=== PATIENT | female | born 1975 | race African-American/Black ===

== ENCOUNTER 2017-03-17 15:17 | Emergency (ER) | payer SELFPAY ==
[~2017-03-17] VITALS: Ht 172.7 cm; Wt 66.3 kg
[~2017-03-17 15:17] MED LIST: BACT800T5 PO; IBUP600 PO
[2017-03-17 15:18] VITALS: BP 146/100; PULSE 82; RESP 16; TEMP 98.3; O2SAT 98
--- NOTE | 2017-03-17 15:50 | PD ---
HPI Chief Complaint: Skin Problem Time Seen by Provider: 15:22 Travel History International Travel<30 days: No Contact w/Intl Traveler<30days: No Traveled to known affect area: No History of Present Illness HPI 41-year-old female presents emergency department for evaluation of left thumb pain and swelling. Symptom onset 2 days ago. Patient reports she was possibly bitten by a mosquito which caused pain within the left thumb fingertip and has increasingly become more swollen and painful over the last 2 days. She denies injury or trauma or puncture wound to the area. She reports the pain is constant, described as throbbing and worse with palpation, relieved with rest severity 4 out of 10. She denies fevers or chills. She reports normal sensation and movement within the thumb. PFSH Past Medical History Asthma: Yes Heart Rhythm Problems: No Cardiac Catheterization: No Congestive Heart Failure: No Diabetes: No Diminished Hearing: No Hypertension: No Respiratory: Yes (ASTHMA) Immunizations Current: No Myocardial Infarction: No ?: Not : 0 Past Surgical History Coronary Artery Bypass Graft: No Social History Alcohol Use: No Tobacco Use: No Substance Use: No Allergies-Medications (Allergen,Severity, Reaction): Coded Allergies: Benadryl (Verified Allergy, Severe, SWELLING EYES, 03/17/17) Diphenhydramine (Verified Adverse Reaction, Severe, EYES SWELL CLOSED, RASH, 03/17/17) Reported Meds & Prescriptions Reported Meds & Active Scripts Active Motrin 600 Mg Tab (Ibuprofen) 600 Mg Tab 600 Mg PO Q6H PRN Bactrim DS (Sulfamethoxazole-Trimethoprim DS) 1 Tab Tab 1 Tab PO BID Review of Systems Except as stated in HPI: all other systems reviewed are Neg General / Constitutional: No: Fever Eyes: No: Visual changes HENT: No: Headaches Cardiovascular: No: Chest Pain or Discomfort Respiratory: No: Shortness of Breath Gastrointestinal: No: Abdominal Pain Genitourinary: No: Dysuria Musculoskeletal: Positive: Other (left thumb pain) Physical Exam Narrative GENERAL: Well-nourished, well-developed patient. SKIN: Focused skin assessment warm/dry. Mild swelling of left distal thumb and the location of the fingertip. No fluctuance or induration. No evidence of puncture wound. Mild erythema. No lymphangitis. HEAD: Normocephalic. EYES: No scleral icterus. No injection or drainage. NECK: Supple, trachea midline. No JVD or lymphadenopathy. CARDIOVASCULAR: Regular rate and rhythm without murmurs, gallops, or rubs. RESPIRATORY: Breath sounds equal bilaterally. No accessory muscle use. GASTROINTESTINAL: Abdomen soft, non-tender, nondistended. MUSCULOSKELETAL: No cyanosis, or edema. Left hand: Mild swelling of left distal thumb and the location of the fingertip. No fluctuance or induration. No evidence of puncture wound. Mild erythema. No lymphangitis. Full painless range of motion of the digit. Brisk cap refill. . Data Data Last Documented VS Vital Signs Date Time Temp Pulse Resp B/P Pulse Ox O2 Delivery O2 Flow Rate FiO2 03/17/17 15:18 98.3 82 16 146/100 98 MDM Medical Decision Making Medical Screen Exam Complete: Yes Emergency Medical Condition: Yes Differential Diagnosis Early abscess, clinically ruled out infectious tenosynovitis, clinically ruled out cellulitis Narrative Course 41-year-old female present to emergency department for evaluation of left thumb pain and swelling in 2 days. Patient reports she may have been bit by an insect. This was not seen and just to the recovery of the patient's. She denies fever or chills. On exam she does have mild swelling to the left thumb and the location of the fingertip. She does not have clinical evidence of infectious tenosynovitis or cellulitis of the hand. Needle aspirate of the left thumb did not provide any purulent drainage. I suspect this is an early abscess/early felon. Patient prescribed on antibiotics instructed to return in 1-2 days. Patient agrees to plan Diagnosis Primary Impression: Abscess Referrals: [facility] Additional Instructions: Take the antibiotic as prescribed. Continue to soak the finger as instructed. The area may require incision and drainage in the next few days. Return to the emergency department for reevaluation. Scripts Sulfamethoxazole-Trimethoprim (Bactrim DS)800-160 Mg Tab1 Tab PO BID #20 TAB Prov:Nora Sellers 03/17/17 Disposition: 01 DISCHARGE HOME Condition: Stable Nora Sellers Mar 17, 2017 15:50
[2017-03-17] MEDS ORDERED: BACT800T5 PO (15:51)
== END 2017-03-17 16:00 | disposition home or self-care (01) ==
LOC: PHEFT 15:17
DX: L02.512 Cutaneous abscess of left hand (principal)
CPT/HCPCS: 10160

== ENCOUNTER 2017-09-05 13:55 | Emergency (ER) | payer SELFPAY ==
[~2017-09-05 13:55] MED LIST changes: -IBUP600 PO
[2017-09-05 13:57] VITALS: BP 142/86; PULSE 70; RESP 16; TEMP 99; O2SAT 99
[2017-09-05] MEDS ORDERED: BACT800T5 PO (14:47)
--- NOTE | 2017-09-05 14:48 | PD ---
HPI Chief Complaint: Skin Problem Time Seen by Provider: 14:25 Travel History International Travel<30 days: No Contact w/Intl Traveler<30days: No Traveled to known affect area: No History of Present Illness HPI This is a 42-year-old female here with painful lump to her left arm. She reports the lump has been present for close to a year. She bumped the area on a wall while at work which caused area to drain whitish fluid and became increasingly more painful and swollen. She denies fever or chills. No alleviating factors. She has no other medical complaints. [facility] Past Medical History Asthma: Yes Heart Rhythm Problems: No Cardiac Catheterization: No Cardiovascular Problems: Yes (HTN) Congestive Heart Failure: No Diabetes: No Diminished Hearing: No Hypertension: No Respiratory: Yes (ASTHMA) Immunizations Current: No Myocardial Infarction: No ?: Not : 0 Past Surgical History Coronary Artery Bypass Graft: No Social History Alcohol Use: No Tobacco Use: Yes (09/21 PPD) Substance Use: No Allergies-Medications (Allergen,Severity, Reaction): Coded Allergies: diphenhydramine (Unverified Adverse Reaction, Severe, EYES SWELL CLOSED, RASH, 05/02/17) Reported Meds & Prescriptions Reported Meds & Active Scripts Active No Active Prescriptions or Reported Medications Review of Systems Except as stated in HPI: all other systems reviewed are Neg General / Constitutional: No: Fever Physical Exam Narrative GENERAL: Alert female in no distress. SKIN: Warm and dry. 1 cm tender indurated lump to the left deltoid region. The area has a central opening. No drainage. No fluctuance. No surrounding cellulitis. HEAD: Normocephalic. EYES: No scleral icterus. No injection or drainage. NECK: Supple, trachea midline. No JVD or lymphadenopathy. CARDIOVASCULAR: Regular rate and rhythm without murmurs, gallops, or rubs. RESPIRATORY: Breath sounds equal bilaterally. No accessory muscle use. MUSCULOSKELETAL: No cyanosis, or edema. Left Upper extremity: 1 cm tender indurated lump to the left deltoid region. The area has a central opening. No drainage. No fluctuance. No surrounding cellulitis. Data Data Last Documented VS Vital Signs Date Time Temp Pulse Resp B/P (MAP) Pulse Ox O2 Delivery O2 Flow Rate FiO2 09/05/17 13:57 99.0 70 16 142/86 (104) 99 Room Air MDM Medical Decision Making Medical Screen Exam Complete: Yes Emergency Medical Condition: Yes Differential Diagnosis Inflamed sebaceous cysts, abscess, cellulitis Narrative Course 42-year-old female here with what appears to be an inflamed sebaceous cyst. The area apparently began to drain after she contused it on a wall at work. She has tenderness when area is palpated. There is no fluctuance. Patient we put on Bactrim and instructed to follow-up with dermatology for removal. Diagnosis Primary Impression: Inflamed sebaceous cyst Referrals: [employer] [employer] Additional Instructions: Apply warm compresses to the area. Take antibiotics as prescribed. 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 Scripts Sulfamethoxazole-Trimethoprim (Bactrim DS) 800-160 Mg Tab 1 TAB PO BID for Infection, #20 TAB 0 Refills Prov: Nora Sellers 09/05/17 Disposition: 01 DISCHARGE HOME Condition: Stable Nora Sellers Sep 05, 2017 14:48
== END 2017-09-05 15:03 | disposition home or self-care (01) ==
LOC: NEPK 13:55
DX: L72.3 Sebaceous cyst (principal); F17.200 Nicotine dependence, unspecified, uncomplicated
CPT/HCPCS: 99283

== ENCOUNTER 2017-10-21 12:57 | Emergency (ER) | payer SELFPAY ==
[~2017-10-21] VITALS: Ht 172.7 cm; Wt 68.1 kg
[2017-10-21 13:00] VITALS: BP 149/88; PULSE 79; RESP 16; TEMP 98.4; O2SAT 98
[2017-10-21] MEDS ORDERED: PRED20 PO (13:10)
[2017-10-21] MEDS ORDERED: VENTAER INH (13:10)
[2017-10-21] MEDS ORDERED: ZITHTAB PO (13:10)
--- NOTE | 2017-10-21 13:10 | PD ---
HPI Chief Complaint: Cold / Flu Symptoms Time Seen by Provider: 13:03 Travel History International Travel<30 days: No Contact w/Intl Traveler<30days: No Traveled to known affect area: No History of Present Illness HPI The patient is a 42-year-old after [place] female who presents emergency department for cough and cold symptoms of 5 days' duration. The patient is productive cough producing yellow to green sputum over the last 5 days. She also complains of chest congestion associated with her cough and a frontal headache secondary to coughing. She notes subjective fevers without chills or sweats. She does have a history of tobacco use. She denies any nausea, vomiting, diarrhea, or abdominal pain. She denies any significant myalgias or arthralgias. Symptoms are moderate without any alleviating or exacerbating factors. She does have a history of bronchitis. PFSH Past Medical History Asthma: Yes Heart Rhythm Problems: No Cardiac Catheterization: No Cardiovascular Problems: Yes (htn on meds) Congestive Heart Failure: No Diabetes: No Diminished Hearing: No Heparin Induced Thrombocytopen: No Hypertension: No Immunizations Current: No Myocardial Infarction: No ?: Not LMP: 10/09/17 : 0 Past Surgical History Coronary Artery Bypass Graft: No Family History Family Myocardial Infarction: No Social History Alcohol Use: No Tobacco Use: Yes (09/21 PPD) Substance Use: No Allergies-Medications (Allergen,Severity, Reaction): Coded Allergies: diphenhydramine (Unverified Adverse Reaction, Severe, EYES SWELL CLOSED, RASH, 10/21/17) Reported Meds & Prescriptions Reported Meds & Active Scripts Active Bactrim DS (Sulfamethoxazole-Trimethoprim) 800-160 Mg Tab 1 Tab PO BID Review of Systems General / Constitutional: Positive: Fever (subjective) HENT: Positive: Headaches, Congestion Respiratory: Positive: Cough, No: Shortness of Breath Gastrointestinal: No: Nausea, Vomiting, Diarrhea, Abdominal Pain Genitourinary: No: Dysuria Musculoskeletal: No: Myalgias Physical Exam Narrative GENERAL: Awake, alert, pleasant 42-year-old female who appears her stated age and is in no acute respiratory distress. SKIN: Focused skin assessment warm/dry. HEAD: Atraumatic. Normocephalic. EYES: Pupils equal and round. No scleral icterus. No injection or drainage. ENT: No nasal bleeding or discharge. Oropharynx reveals cobblestoning but no exudate. Breath smells of cigarettes. No tenderness of the maxillary sinuses. Minimal tenderness of the frontal sinuses. NECK: Trachea midline. No JVD. CARDIOVASCULAR: Regular rate and rhythm. No murmur appreciated. RESPIRATORY: No accessory muscle use. Few scattered rhonchi. MUSCULOSKELETAL: No obvious deformities. No clubbing. No cyanosis. No edema. NEUROLOGICAL: Awake and alert. No obvious cranial nerve deficits. Motor grossly within normal limits. Normal speech. PSYCHIATRIC: Appropriate mood and affect; insight and judgment normal. Data Data Last Documented VS Vital Signs Date Time Temp Pulse Resp B/P (MAP) Pulse Ox O2 Delivery O2 Flow Rate FiO2 10/21/17 13:00 98.4 79 16 149/88 (108) 98 MDM Medical Decision Making Medical Screen Exam Complete: Yes Emergency Medical Condition: Yes Medical Record Reviewed: Yes Differential Diagnosis Differential diagnosis includes bronchitis, sinusitis, URI, viral syndrome, pharyngitis, pneumonia. Narrative Course The patient's history is consistent with bronchitis, she does have a history of tobacco use. She is advised to stop smoking. Prednisone, albuterol inhaler, Zithromax as directed. Work excuse for today. Follow-up with a primary physician. Return if symptoms worsen or progress. Diagnosis Primary Impression: Bronchitis Patient Instructions: General Instructions Additional Instructions: Medications as directed. Stop smoking. Work excuse for today and tomorrow. Return if symptoms worsen or progress. Follow-up with a primary physician. Med/Other Pt SpecificInfo: Prescription(s) given Scripts Azithromycin (Zithromax Z-Jett) 250 Mg Dspk 250 MG PO DIRECTED for Infection, #1 DSPK 0 Refills 500 MG (2 tabs) day 1, then 1 tab days 2-5. Prov: Ryan Rodriguez MD 10/21/17 Albuterol 18 GM Inh (Ventolin Hfa 18 GM Inh) 90 Mcg/Act Aer 2 PUFF INH Q4H Y for SHORTNESS OF BREATH, #1 INHALER 0 Refills Prov: Ryan Rodriguez MD 10/21/17 Prednisone (Prednisone) 20 Mg Tab 40 MG PO DIRECTED for 5 Days, TAB 0 Refills Prov: Ryan Rodriguez MD 10/21/17 Disposition: 01 DISCHARGE HOME Condition: Stable Ryan Rodriguez MD Oct 21, 2017 13:10
== END 2017-10-21 14:19 | disposition home or self-care (01) ==
LOC: PHEFT 12:57
DX: J40 Bronchitis, not specified as acute or chronic (principal); R51 Headache; J45.909 Unspecified asthma, uncomplicated; I10 Essential (primary) hypertension; F17.200 Nicotine dependence, unspecified, uncomplicated
CPT/HCPCS: 99283

== ENCOUNTER 2017-12-23 08:39 | Emergency (ER) | payer SELFPAY ==
[~2017-12-23] VITALS: Ht 172.7 cm; Wt 67.0 kg
[~2017-12-23 08:39] MED LIST changes: +PRED20 PO; +VENTAER INH; +ZITHTAB PO
[2017-12-23 08:41] VITALS: BP 130/90; PULSE 91; RESP 16; TEMP 98.7; O2SAT 98
[2017-12-23] MEDS ORDERED: HYDR-3583 PO (08:52)
[2017-12-23] MEDS ORDERED: LISI-515 PO (08:52)
[2017-12-23 09:04] LABS: BILIRUBIN, URINE NEG (NEG); BLOOD, URINE SMALL (NEG); GLUCOSE,URINE NEG (NEG); KETONE, URINE 15 mg/dL (NEG); NITRITE,URINE NEG (NEG); PH, URINE 5.5 (5.0-8.5); URINE COLOR YELLOW (YELLW/STRAW); URINE LEUKOCYTE ESTERASE NEG (NEG)
[2017-12-23] MEDS ORDERED: SODIUM CHLOR 0.9% 1000 ML INJ 1,000 ML IV SCH (09:08)
[2017-12-23 09:14] VITALS: O2SAT 97
--- NOTE | 2017-12-23 09:14 | PD ---
HPI Chief Complaint: GI Complaint Time Seen by Provider: 09:08 Travel History International Travel<30 days: No Contact w/Intl Traveler<30days: No Traveled to known affect area: No History of Present Illness HPI Patient presents with complaints of lower abdominal pain 3 days. Reports occasional nausea and vomiting. Denies any urinary or bowel symptoms. Last bowel movement yesterday, normal. Pain is 9 out of 10 constant nature and aggravated with ambulation. No history of abdominal surgeries. Denies . Last menses mid November, regular normal. No history of ovarian cyst. Denies any blood per emesis. PFSH Past Medical History Asthma: Yes Heart Rhythm Problems: No Cardiac Catheterization: No Cardiovascular Problems: Yes (htn on meds) Congestive Heart Failure: No Diabetes: No Diminished Hearing: No Heparin Induced Thrombocytopen: No Hypertension: Yes Medical other: Yes (CHRONIC BACK PAIN) Immunizations Current: No Myocardial Infarction: No Influenza Vaccination: No ?: Not LMP: 12/01/17 : 0 Past Surgical History Coronary Artery Bypass Graft: No Social History Alcohol Use: No Tobacco Use: Yes (09/21 PPD) Substance Use: No Allergies-Medications (Allergen,Severity, Reaction): Coded Allergies: diphenhydramine (Unverified Adverse Reaction, Severe, EYES SWELL CLOSED, RASH, 12/23/17) Reported Meds & Prescriptions Reported Meds & Active Scripts Active Hydrocodone-Acetaminophen 5-325 mg Tab 1 Tab PO Q6H PRN Diclofenac Sodium DR (Diclofenac Sodium) 75 Mg Tabdr 75 Mg PO BID Reported Hydrocodone-Acetaminophen 10-325 mg Tab 1 Tab PO Q6H PRN Lisinopril 20 Mg Tab 20 Mg PO DAILY Review of Systems General / Constitutional: No: Fever Eyes: No: Visual changes HENT: No: Headaches Cardiovascular: No: Chest Pain or Discomfort Respiratory: No: Shortness of Breath Gastrointestinal: Positive: Nausea, Vomiting, Abdominal Pain Genitourinary: No: Dysuria Musculoskeletal: No: Pain Skin: No Rash Neurologic: No: Weakness Psychiatric: No: Depression Endocrine: No: Polydipsia Hematologic/Lymphatic: No: Easy Bruising Physical Exam Narrative GENERAL: Well-nourished, well-developed patient. SKIN: Focused skin assessment warm/dry. HEAD: Normocephalic. EYES: No scleral icterus. No injection or drainage. NECK: Supple, trachea midline. No JVD or lymphadenopathy. CARDIOVASCULAR: Regular rate and rhythm without murmurs, gallops, or rubs. RESPIRATORY: Breath sounds equal bilaterally. No accessory muscle use. GASTROINTESTINAL: Abdomen soft, diffusely tender right and left lower quadrants , mildly distended MUSCULOSKELETAL: No cyanosis, or edema. BACK: Nontender without obvious deformity. No CVA tenderness. Data Data Last Documented VS Vital Signs Date Time Temp Pulse Resp B/P (MAP) Pulse Ox O2 Delivery O2 Flow Rate FiO2 12/23/17 11:30 75 18 169/91 (117) 99 Room Air 12/23/17 08:41 98.7 Orders Orders Urinalysis - C+S If Indicated (12/23/17 08:57) Ed Urine Pregnancytest Poc (12/23/17 08:57) Complete Blood Count With Diff (12/23/17 09:08) Comprehensive Metabolic Panel (12/23/17 09:08) Lactic Acid (12/23/17 09:08) Ct Abd/Pel W Iv Contrast(Rout) (12/23/17 09:08) Iv Access Insert/Monitor (12/23/17 09:08) Ecg Monitoring (12/23/17 09:08) Oximetry (12/23/17 09:08) Ondansetron Inj (Zofran Inj) (12/23/17 09:15) Sodium Chlor 0.9% 1000 Ml Inj (Ns 1000 M (12/23/17 09:08) Sodium Chloride 0.9% Flush (Ns Flush) (12/23/17 09:15) Iohexol 350 Inj (Omnipaque 350 Inj) (12/23/17 09:53) Prothrombin Time / Inr (Pt) (12/23/17 10:43) NPO (12/23/17 10:43) Labs Laboratory Tests Test 12/23/17 09:00 12/23/17 09:24 12/23/17 11:16 Urine Collection Type CLEAN CATCH Urine Color YELLOW Urine Turbidity CLEAR Urine pH 5.5 Urine Specific [place] 1.025 Urine Protein NEG mg/dL Urine Glucose (UA) NEG mg/dL Urine Ketones 15 mg/dL Urine Occult Blood SMALL Urine Nitrite NEG Urine Bilirubin NEG Urine Urobilinogen 0.2 MG/DL Urine Leukocyte Esterase NEG Urine RBC 0-3 /hpf Urine Squamous Epithelial Cells 0-5 /hpf Microscopic Urinalysis Comment CULT NOT INDICATED Urine Collection Time 09:00 White Blood Count 8.6 TH/MM3 Red Blood Count 4.41 MIL/MM3 Hemoglobin 12.0 GM/DL Hematocrit 36.1 % Mean Corpuscular Volume 81.7 FL Mean Corpuscular Hemoglobin 27.2 PG Mean Corpuscular Hemoglobin Concent 33.2 % Red Cell Distribution Width 15.8 % Platelet Count 275 TH/MM3 Mean Platelet Volume 9.4 FL Neutrophils (%) (Auto) 60.3 % Lymphocytes (%) (Auto) 23.9 % Monocytes (%) (Auto) 9.6 % Eosinophils (%) (Auto) 1.8 % Basophils (%) (Auto) 4.4 % Neutrophils # (Auto) 5.1 TH/MM3 Lymphocytes # (Auto) 2.1 TH/MM3 Monocytes # (Auto) 0.8 TH/MM3 Eosinophils # (Auto) 0.2 TH/MM3 Basophils # (Auto) 0.4 TH/MM3 CBC Comment DIFF FINAL Differential Comment Blood Urea Nitrogen 7 MG/DL Creatinine 0.73 MG/DL Random Glucose 87 MG/DL Total Protein 7.8 GM/DL Albumin 3.3 GM/DL Calcium Level 8.5 MG/DL Alkaline Phosphatase 66 U/L Aspartate Amino Transf (AST/SGOT) 34 U/L Alanine Aminotransferase (ALT/SGPT) 13 U/L Total Bilirubin 0.6 MG/DL Sodium Level 139 MEQ/L Potassium Level 4.1 MEQ/L Chloride Level 109 MEQ/L Carbon Dioxide Level 21.7 MEQ/L Anion Gap 8 MEQ/L Estimat Glomerular Filtration Rate 106 ML/MIN Lactic Acid Level 0.7 mmol/L Prothrombin Time 11.1 SEC Prothromb Time International Ratio 1.1 [facility] Medical Decision Making Medical Screen Exam Complete: Yes Emergency Medical Condition: Yes Differential Diagnosis Ovarian cyst, appendicitis, diverticulitis, colitis, small bowel obstruction Narrative Course Assessment plan discussed with patient at bedside. Last 72 hours Impressions Abdomen/Pelvis CT 12/23/17 0908 Signed Impressions: Service Date/Time: Saturday, December 23, 2017 09:42 - CONCLUSION: 1. Significantly abnormal enlargement of the uterus with enlarged solid and cystic appearing heterogeneously enhancing masses. These have the appearance of necrotic fibromas however, the largest mass is slightly concerning in appearance and size and worrisome for possible sarcomatous degeneration. There is moderate adjacent free fluid identified in the pelvis. Normal ovaries are not visualized. 2. 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 Flores Marshall MD Of note patient presented in July 2011 with complaints of vaginal bleeding on exam at that time patient was noted to have a palpable uterine mass in the right adnexal and fundal tubelike mass. Mandatory referral was placed. Patient states she has difficulty recalling but thinks she went to [place] where an ultrasound was done and she was told there was nothing wrong. She does receive yearly Pap smears from Dr. Mcintosh. Last meal yesterday about 1:00. Coags pending. Physician Communication Physician Communication Spoke with Dr. Taylor who plans on discussing treatment options with the patient. Diagnosis Primary Impression: Fibroid, uterine Qualified Codes: D25.9 - Leiomyoma of uterus, unspecified Patient Instructions: General Instructions Additional Instructions: Anti-inflammatory daily, pain medication as needed, follow-up with Dr. Rosas, mandatory referral placed. Return to emergency room with any onset of new symptoms. Med/Other Pt SpecificInfo: Prescription(s) given Scripts Hydrocodone-Acetaminophen (Hydrocodone-Acetaminophen) 5-325 mg Tab 1 TAB PO Q6H Y for PAIN, #15 TAB 0 Refills Prov: Tarik Bateman MD 12/23/[address] (Diclofenac Sodium DR) 75 Mg Tabdr 75 MG PO BID for Pain, #60 TAB 0 Refills Prov: Tarik Bateman MD 12/23/17 Disposition: 01 DISCHARGE HOME Condition: Good Tarik Bateman MD Dec 23, 2017 09:14
[2017-12-23] MEDS ORDERED: SODIUM CHLORIDE 0.9% FLUSH 10 ML FLUSH IV FLUSH PRN (09:15)
[2017-12-23] MEDS ORDERED: ONDANSETRON HCL 4 MG/2 ML VIAL IVP ONE (09:15)
[2017-12-23 09:28] VITALS: BP 154/91; PULSE 64; RESP 18; O2SAT 99
[2017-12-23 09:35] LABS: AUTOMATED NEUTROPHIL # 5.1 TH/MM3 (1.8-7.7); BASOPHIL # 0.4 TH/MM3 (0-0.2); BASOPHIL % 4.4 % (0.0-2.0); EOSINOPHIL # 0.2 TH/MM3 (0-0.4); EOSINOPHIL % 1.8 % (0.0-4.0); HEMATOCRIT 36.1 % (35.0-46.0); LYMPH % 23.9 % (9.0-44.0); LYMPHOCYTE # 2.1 TH/MM3 (1.0-4.8); MEAN CELL VOLUME 81.7 FL (80.0-100.0); MEAN CORPUSCULAR HEMOGLOBIN 27.2 PG (27.0-34.0); MEAN CORPUSCULAR HGB CONC 33.2 % (32.0-36.0); MEAN PLATELET VOLUME 9.4 FL (7.0-11.0); MONO % 9.6 % (0.0-8.0); MONOCYTE # 0.8 TH/MM3 (0-0.9); NEUT % 60.3 % (16.0-70.0); PLATELET COUNT 275 TH/MM3 (150-450); RED BLOOD COUNT 4.41 MIL/MM3 (4.00-5.30); RED CELL DISTRIBUTION WIDTH 15.8 % (11.6-17.2); WHITE BLOOD COUNT 8.6 TH/MM3 (4.0-11.0)
[2017-12-23 09:41] LABS: RBC, URINE 0-3 /hpf (0-3); SQUAMOUS EPITHELIAL CELL URINE 0-5 /hpf (0-5)
[2017-12-23 09:49] LABS: ALBUMIN 3.3 GM/DL (3.4-5.0); BICARBONATE 21.7 MEQ/L (21.0-32.0); CALCIUM 8.5 MG/DL (8.5-10.1)
[2017-12-23 09:50] LABS: GLUCOSE,RANDOM 87 MG/DL (74-106)
[2017-12-23 09:52] LABS: ALT (GPT) 13 U/L (10-53)
[2017-12-23 09:53] LABS: AST (GOT) 34 U/L (15-37); CREATININE 0.73 MG/DL (0.50-1.00); GLOMERULAR FILTRATION RATE 106 ML/MIN (>89)
[2017-12-23] MEDS ORDERED: IOHEXOL 350 MG/ML 10 ML VIAL (for RAD DIAG) IVCONTRAST ONE (09:53)
[2017-12-23 09:54] LABS: TOTAL BILIRUBIN ADULT 0.6 MG/DL (0.2-1.0); TOTAL PROTEIN 7.8 GM/DL (6.4-8.2)
[2017-12-23 09:55] LABS: ALKALINE PHOSPHATASE 66 U/L (45-117); BLOOD UREA NITROGEN 7 MG/DL (7-18)
[2017-12-23 09:59] LABS: CHLORIDE 109 MEQ/L (98-107); SODIUM (NA) 139 MEQ/L (136-145)
--- NOTE | 2017-12-23 10:22 | RADRPT ---
EXAM DATE/TIME: 12/23/2017 09:42 [facility] COMPARISON: No previous studies available for comparison. INDICATIONS : Abdominal pain, nausea, vomiting, bloating. IV CONTRAST: 75 cc Omnipaque 350 (iohexol) IV ORAL CONTRAST: No oral contrast ingested. RADIATION DOSE: 6.62 CTDIvol (mGy) MEDICAL HISTORY : Hypertension. Asthma SURGICAL HISTORY : orthopedic ENCOUNTER: Initial ACUITY: 3 days PAIN SCALE: 9/10 LOCATION: Right middle abdomen TECHNIQUE: Volumetric scanning of the abdomen and pelvis was performed. Using automated exposure control and ad justment of the mA and/or kV according to patient size, radiation dose was kept as low as reasonably achievable to obtain optimal diagnostic quality images. DICOM format image data is available electro nically for review and comparison. FINDINGS: LOWER LUNGS: Mild dependent atelectasis. LIVER: Homogeneous density without lesion. There is no dilation of the biliary tree. No calcified gallston es. SPLEEN: Normal size without lesion. PANCREAS: Within normal limits. KIDNEYS: Normal in size and shape. There is a well-circumscribed 1.2 cm cystic structure identified in the lef t kidney with a dependent calcification. ADRENAL GLANDS: Within normal limits. VASCULAR: There is no aortic aneurysm. BOWEL/MESENTERY: The stomach, small bowel, and colon demonstrate no acute abnormality. The appendix is normal. ABDOMINAL WALL: Within normal limits. RETROPERITONEUM: There is no lymphadenopathy. BLADDER: No wall thickening or mass. REPRODUCTIVE: The uterus is significantly abnormal. There is a large heterogeneously enhancing mass which appears t o arise from the right myometrium measuring 10.9 by 1.0 x 8.0 cm. Similar heterogeneous enhancing mas s arising from the left uterine fundus measuring 4.5 x 4.0 x 6.0 cm in length and the lower uterine s egment there is a heterogeneous low attenuating mass measuring 5.0 x 5.0 x 6.0 cm. The endometrium ap pears thin. Ovaries are not visualized. There is a moderate amount of free fluid identified within th e pelvis. INGUINAL: There is no lymphadenopathy or hernia. MUSCULOSKELETAL: Within normal limits for patient age. CONCLUSION: 1. Significantly abnormal enlargement of the uterus with enlarged solid and cystic appearing heteroge neously enhancing masses. These have the appearance of necrotic fibromas however, the largest mass is slightly concerning in appearance and size and worrisome for possible sarcomatous degeneration. Ther e is moderate adjacent free fluid identified in the pelvis. Normal ovaries are not visualized. 2. 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 Flores Marshall MD on December 23, 2017 at 10:01 Board Certified Radiologist. This report was verified electronically.
[2017-12-23 10:28] VITALS: BP 158/88; PULSE 71; RESP 18; O2SAT 100
[2017-12-23 11:30] VITALS: BP 169/91; PULSE 75; RESP 18; O2SAT 99
[2017-12-23 11:31] LABS: INTERNATIONAL NORMALIZED RATIO 1.1 RATIO; PROTHROMBIN TIME - PATIENT 11.1 SEC (9.8-11.6)
[2017-12-23] MEDS ORDERED: HYDR-3516 PO (12:24)
[2017-12-23] MEDS ORDERED: DICL75TA PO (12:24)
[2017-12-23 12:41] VITALS: BP 132/77
--- NOTE | 2017-12-29 17:50 | PD.CONS ---
History of Present Illness Service Gynecology Consult Requested By Dr. Tarik Enrique Reason for Consult Pelvic pain, acute Uterine masses Primary Care Physician No Primary Care Physician Diagnoses: Review of Systems Constitutional: DENIES: Fever, Chills, Change in appetite Endocrine: DENIES: Heat/cold intolerance Eyes: DENIES: Blurred vision, Eye pain Gastrointestinal: COMPLAINS OF: Abdominal pain (pelvic the the right of midline for 3-4 days), Nausea, Vomiting (associated with the pelvic pain) Except as stated in HPI: all other systems reviewed are Neg Past Family Social History Allergies: Coded Allergies: diphenhydramine (Unverified Adverse Reaction, Severe, EYES SWELL CLOSED, RASH, 12/23/17) Physical Exam Physical Exam GENERAL: This is a well-nourished, well-developed patient, in no apparent distress. SKIN: No rashes, ecchymoses or lesions. Cool and dry. HEAD: Atraumatic. Normocephalic. No temporal or scalp tenderness. EYES: Pupils equal round and reactive. Extraocular motions intact. No scleral icterus. No injection or drainage. ENT: Nose without bleeding, purulent drainage or septal hematoma. Throat without erythema, tonsillar hypertrophy or exudate. Uvula midline. Airway patent. Edentulous. NECK: Trachea midline. No JVD or lymphadenopathy. Supple, nontender, no meningeal signs. CARDIOVASCULAR: Regular rate and rhythm without murmurs, gallops, or rubs. RESPIRATORY: Clear to auscultation. Breath sounds equal bilaterally. No wheezes , rales, or rhonchi. GASTROINTESTINAL: Abdomen soft, non-tender, nondistended. No hepato-splenomegaly , or palpable masses. No guarding except on palpation of right-sided suprapubic mass. MUSCULOSKELETAL: Extremities without clubbing, cyanosis, or edema. No joint tenderness, effusion, or edema noted. No calf tenderness. Negative Homans sign bilaterally. NEUROLOGICAL: Awake and alert. Cranial nerves II through XII intact. Motor and sensory grossly within normal limits. Five out of 5 muscle strength in all muscle groups. Normal speech. Assessment and Plan Assessment and Plan This 42 y/o G0 SBF presented to the ER when she developed acute pelvic pain, right of midline. CT showed uterine enlargement with probably large necrosing fibroids. I reviewed the imaging myself and agree with the working diagnosis of necrosing fibroids. The patient's presentation and exam certainly support this as well. However, without a prior knowledge or diagnosis of fibroids, sarcoma must be considered and the patient will need to be operated for removal of the masses or followed until the diagnosis of fibroids is established. [place] and shed a few tears just from the pain of sitting up. The mass is palpable above the symphysis pubis. The right side is exquisitely tender; the left is not. Imaging indicates that the fibroids are largely submucosal arising on the right with the uterus otherwise intact. The endometrial cavity is not effected. This would explain why she has had no abnormal bleeding. Discussed with the patient the diagnosis of fibroids, the typical course of necrosis and involution in the case of fibroid infarction, and the option for hysterectomy. I offered total abdominal hysterectomy on the day of service. An abdominal approach is required due to the size of her masses and their position making the right uterine vasculature inaccessible. However, a laparotomy requires six weeks recovery with restricted lifting and activity. The patient felt her boss would hold her job, but she would lose her house. She wants to treat her condition expectantly. Explained to the patient that anti-inflammatory medications are the main way to control pain in her condition, but she may need something narcotic at times for breakthrough pain. She accepts prescriptions for anti-inflammatory and Lortab and is instructed to contact my office for an appointment within 6 days. Idania Taylor MD Dec 29, 2017 17:50
== END 2017-12-23 12:42 | disposition home or self-care (01) ==
LOC: PHED 08:39
DX: D25.9 Leiomyoma of uterus, unspecified (principal); J45.909 Unspecified asthma, uncomplicated; I10 Essential (primary) hypertension; F17.210 Nicotine dependence, cigarettes, uncomplicated
CPT/HCPCS: 74177; 80053; 81001; 83605; 84703; 85025; 85610; 96360; 96361; 99285; J2405; J7030; Q9967

== ENCOUNTER 2018-02-21 00:52 | Emergency (ER) | payer SELFPAY ==
[~2018-02-21] VITALS: Ht 172.7 cm; Wt 67.2 kg
[~2018-02-21 00:52] MED LIST changes: -BACT800T5 PO; +DICL75TA PO; +HYDR-3516 PO; +HYDR-3583 PO; +LISI-515 PO; -PRED20 PO; -VENTAER INH; -ZITHTAB PO
[2018-02-21 00:57] VITALS: BP 168/87; PULSE 81; RESP 18; TEMP 98; O2SAT 99
[2018-02-21] MEDS ORDERED: SOMA350T PO ×2 (01:21→01:36)
--- NOTE | 2018-02-21 01:22 | PD ---
HPI Chief Complaint: Musculoskeletal Complaint Time Seen by Provider: 01:13 Travel History International Travel<30 days: No Contact w/Intl Traveler<30days: No Traveled to known affect area: No History of Present Illness HPI 42-year-old female presented here for evaluation muscle pain. Patient has chronic lower back pain and she takes Soma 350 mg 2 times a day, patient states that her doctor retired and she is [place] muscle relaxant and Dr. the next week. Patient denies any new symptoms, she has no trauma no fever chills, no systemic symptoms. PFSH Past Medical History Asthma: Yes Heart Rhythm Problems: No Cardiac Catheterization: No Cardiovascular Problems: Yes (htn on meds) Congestive Heart Failure: No Diabetes: No Diminished Hearing: No Heparin Induced Thrombocytopen: No Hypertension: Yes Immunizations Current: No Myocardial Infarction: No LMP: 02/14/18 : 0 Past Surgical History Coronary Artery Bypass Graft: No Social History Alcohol Use: No Tobacco Use: Yes (09/21 PPD) Substance Use: No Allergies-Medications (Allergen,Severity, Reaction): Coded Allergies: diphenhydramine (Verified Adverse Reaction, Severe, EYES SWELL CLOSED, RASH, 02/21/18) Reported Meds & Prescriptions Reported Meds & Active Scripts Active Hydrocodone-Acetaminophen 5-325 mg Tab 1 Tab PO Q6H PRN Diclofenac Sodium DR (Diclofenac Sodium) 75 Mg Tabdr 75 Mg PO BID Reported Hydrocodone-Acetaminophen 10-325 mg Tab 1 Tab PO Q6H PRN Lisinopril 20 Mg Tab 20 Mg PO DAILY Review of Systems Except as stated in HPI: all other systems reviewed are Neg Physical Exam Narrative GENERAL: Well-nourished, well-developed patient. SKIN: Focused skin assessment warm/dry. HEAD: Normocephalic. EYES: No scleral icterus. No injection or drainage. NECK: Supple, trachea midline. No JVD or lymphadenopathy. CARDIOVASCULAR: Regular rate and rhythm without murmurs, gallops, or rubs. RESPIRATORY: Breath sounds equal bilaterally. No accessory muscle use. GASTROINTESTINAL: Abdomen soft, non-tender, nondistended. MUSCULOSKELETAL: No cyanosis, or edema. BACK: Nontender without obvious deformity. No CVA tenderness. Data Data Last Documented VS Vital Signs Date Time Temp Pulse Resp B/P (MAP) Pulse Ox O2 Delivery O2 Flow Rate FiO2 02/21/18 00:57 98.0 81 18 168/87 (517) 47 MDM Medical Decision Making Medical Screen Exam Complete: Yes Emergency Medical Condition: Yes Differential Diagnosis Medication refill Narrative Course Patient is 42-year-old female presented ER for medication refill of her Soma. I explained the patient that usually those muscle relaxants are needed for short . This time and she does not need to be on Soma for the rest of her life meanwhile I will give her prescription for 1 week supply and I urged her to follow-up with her primary care physician to evaluate lower back pain and see if she needs an MRI of the lower back. Patient understands and agrees the plan of care. I discussed the side effects of Soma and patient verbally stated that she understands. Diagnosis Primary Impression: Medication refill Referrals: [facility] Additional Instructions: Follow-up with [facility] and return to ER if symptoms change or do not improve. Scripts Carisoprodol (Soma) 350 Mg Tab 350 MG PO BID Y for PAIN for 7 Days, #14 TAB 0 Refills Prov: Dani Camacho MD 02/21/18 Disposition: 01 DISCHARGE HOME Condition: Stable Dani Camacho MD Feb 21, 2018 01:22
== END 2018-02-21 01:50 | disposition home or self-care (01) ==
LOC: PHED 00:52
DX: Z76.0 Encounter for issue of repeat prescription (principal); G89.29 Other chronic pain; M54.5 Low back pain; I10 Essential (primary) hypertension; J45.909 Unspecified asthma, uncomplicated; F17.200 Nicotine dependence, unspecified, uncomplicated
CPT/HCPCS: 99283